=== PATIENT | male | born 1990 ===

== ENCOUNTER 2017-01-12 12:35 | Observation (INO) | payer SELFPAY ==
[2017-01-12 12:35] VITALS: BMI 27.1
--- NOTE | 2017-01-12 12:46 | ED PDOC ---
Arrival/HPI - General Historian: Patient - History of Present Illness Time/Duration: 4-6 hours Symptom Onset: Gradual Symptom Course: Unchanged Activities at Onset: Light Context: Home <Walter Sheets - Last Filed: 01/12/17 17:38> <Ariel Galvan - Last Filed: 01/12/17 19:20> - General Time Seen by Provider: 01/12/17 12:37 - History of Present Illness Narrative History of Present Illness (Text): 01/12/17 12:42 Tayo Ann is a 26 year old male, whose past medical history includes alcohol abuse, who presents to the emergency department coming from home reporting of overdose as per EMS today. Patient was found with snoring respirations. EMS reports that Narcan was given. As per EMS, patient took heroin but patient denies any use. Patient endorses that he has been drinking. Patient denies any fever, chills, chest pain, shortness of breath, nausea, vomiting, diarrhea, urinary symptoms, back pain, neck pain, headache, dizziness , or any other complaints. (Walter Sheets) Past Medical History - Provider Review Nursing Documentation Reviewed: Yes - Past History Past History: No Previous - Infectious Disease Hx of Infectious Diseases: None - Tetanus Immunization Tetanus Immunization: Up to Date, Unknown - Past Medical History Past Medical History: No Previous - Cardiac Hx Hypertension: Yes - Pulmonary Hx Respiratory Disorders: No - Neurological Hx Neurological Disorder: No - HEENT Hx HEENT Disorder: No - Renal Hx Renal Disorder: No - Endocrine/Metabolic Hx Endocrine Disorders: No - Hematological/Oncological Hx Blood Disorders: No - Integumentary Hx Dermatological Disorder: No - Musculoskeletal/Rheumatological Hx Musculoskeletal Disorders: No - Gastrointestinal Other/Comment: "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 (Dr Ross) - Genitourinary/Gynecological Hx Genitourinary Disorders: No - Psychiatric Hx Anxiety: Yes Hx Depression: Yes Hx Substance Use: No - Past Surgical History Past Surgical History: No Previous - Surgical History Hx Orthopedic Surgery: Yes (left ankle surgery) Other/Comment: abd surgery secondary to trauma - Anesthesia Hx Anesthesia: Yes Hx Anesthesia Reactions: No Hx Malignant Hyperthermia: No - Suicidal Assessment Feels Threatened In Home Enviroment: No <Walter Sheets - Last Filed: 01/12/17 17:38> Family/Social History - Physician Review Nursing Documentation Reviewed: Yes Family/Social History: No Known Family HX Smoking Status: Unknown If Ever Smoked Hx Alcohol Use: Yes Hx Substance Use: No Substance used: marijuana Hx Substance Use Treatment: No <Walter Sheets - Last Filed: 01/12/17 17:38> Allergies/Home Meds <Walter Sheets - Last Filed: 01/12/17 17:38> <Ariel Galvan - Last Filed: 01/12/17 19:20> Allergies/Adverse Reactions: Allergies shellfish derived Allergy (Verified 04/08/16 01:28) ANAPHYLAXIS Home Medications: Home Meds Medication Instructions Recorded Confirmed Unobtainable 01/12/17 01/12/17 Review of Systems - Physician Review All systems were reviewed & negative as marked: Yes - Review of Systems Constitutional: Other (Overdose) Eyes: absent: Vision Changes, Photophobia ENT: absent: Hearing Changes Respiratory: absent: SOB, Cough Cardiovascular: absent: Chest Pain Gastrointestinal: absent: Abdominal Pain Genitourinary Male: absent: Dysuria, Frequency Musculoskeletal: absent: Arthralgias Skin: absent: Rash, Pruritis Neurological: absent: Headache, Dizziness Endocrine: absent: Diaphoresis Hemo/Lymphatic: absent: Adenopathy <Walter Sheets - Last Filed: 01/12/17 17:38> Physical Exam Appearance: Positive for: Other (odor of alcohol) - Systems Exam Head: Present: Atraumatic, Normocephalic Pupils: Present: PERRL Extroacular Muscles: Present: EOMI Conjunctiva: Present: Normal Mouth: Present: Moist Mucous Membranes Neck: Present: Normal Range of Motion Respiratory/Chest: Present: Clear to Auscultation, Good Air Exchange. No: Respiratory Distress, Accessory Muscle Use Cardiovascular: Present: Regular Rate and Rhythm, Normal S1, S2. No: Murmurs Abdomen: Present: Normal Bowel Sounds. No: Tenderness, Distention, Peritoneal Signs Back: Present: Normal Inspection Upper Extremity: Present: Normal Inspection. No: Cyanosis, Edema Lower Extremity: Present: Normal Inspection. No: Edema Neurological: Present: GCS=15, CN II-XII Intact, Speech Normal Skin: Present: Warm, Dry, Normal Color. No: Rashes Psychiatric: Present: Alert, Oriented x 3, Normal Insight, Normal Concentration <Walter Sheets - Last Filed: 01/12/17 17:38> Medical Decision Making - Lab Interpretations I have reviewed the lab results: Yes <Walter Sheets - Last Filed: 01/12/17 17:38> <Ariel Galvan - Last Filed: 01/12/17 19:20> ED Course and Treatment: 01/12/17 12:46 Impression: 26 year old male complaining of overdose today as per EMS. Differential Diagnosis included but are not limited to: Overdose Plan: -- EKG -- Chest X-ray -- Urinalysis -- Labs -- Reassess and disposition Prior Visits: Notes and results from previous visits were reviewed. Patient last seen in the ED on 07/13/16 for public intoxication. Patient was discharged home. Progress Notes: EKG: Ordered, reviewed, and independently interpreted the EKG. Rate : 113 BPM Rhythm : Sinus Tachycardia Interpretation : No ST-segment elevations or depressions, no T-wave inversions, normal intervals. Comparison : No previous EKG for comparison. (Walter Sheets) 191 pt is now a&ox3, ambulatory with steady gait, clinically not intoxicated, requesting to leave. no indication to hold the pt involuntarily. (Ariel Galvan) - Lab Interpretations Lab Results: 01/12/17 12:48 01/12/17 12:48 Lab Results 01/12/17 12:52: POC Glucose (mg/dL) 91 01/12/17 12:48: Alcohol, Quantitative 293 H 01/12/17 12:48: Salicylates < 1 L, Acetaminophen < 10.0 L 01/12/17 12:48: Sodium 150 H, Potassium 3.7, Chloride 110 H, Carbon Dioxide 21, Anion Gap 23 H, BUN 11, Creatinine 1.2, Est GFR ( Amer) > 60, Est GFR ( Non-Af Amer) > 60, Random Glucose 138 H, Calcium 8.9, Total Bilirubin 0.5, AST 175 H, ALT 206 H, Alkaline Phosphatase 88, Total Protein 8.3, Albumin 4.8, Globulin 3.5, Albumin/Globulin Ratio 1.4 01/12/17 12:48: WBC 6.6 D, RBC 4.59, Hgb 15.1, Hct 44.6, MCV 97.2, MCH 32.9, MCHC 33.9, RDW 12.7, Plt Count 269, MPV 9.3, Gran % 44.0 L, Lymph % (Auto) 48.0 H, Drew % (Auto) 7.4 H, Eos % (Auto) 0.3 L, Baso % (Auto) 0.3, Gran # 2.91, Lymph # 3.2, Drew # 0.5, Eos # 0.0, Baso # 0.02 - RAD Interpretation Radiology Orders: 01/12/17 12:38 CHEST PORTABLE [RAD] Stat - Medication Orders Current Medication Orders: Discontinued Medications Sodium Chloride (Sodium Chloride 0.9%) 1,000 mls @ 999 mls/hr IV .Q1H1M STA Stop: 01/12/17 15:10 Last Admin: 01/12/17 14:25 Dose: 999 mls/hr ED OBSERVATION Discharge: Yes Date of observation admission: 01/12/17 Time of observation admission: 12:42 <Walter Sheets - Last Filed: 01/12/17 17:38> Discharge: Yes <Ariel Galvan - Last Filed: 01/12/17 19:20> - Observation admission statement Patient is being placed in observation because:: 26 year old male being placed on EDOBS for overdose. As per EMS, patient took heroin but patient denies any use. Patient endorses that he has been drinking. ( Walter Sheets) - Goals of Observation Goals of observation are:: Waiting for sobriety (Walter Sheets) - Progress Note Progress Note: 01/12/17 17:40 Patient is currently sleeping and no complaints have been made. (Walter Sheets) - Scribe Statement The provider has reviewed the documentation as recorded by the Scribe <Walter Sheets - Last Filed: 01/12/17 17:38> <Ariel Galvan - Last Filed: 01/12/17 19:20> - Scribe Statement Marsha Austin Provider Scribe Attestation: All medical record entries made by the Scribe were at my direction and personally dictated by me. I have reviewed the chart and agree that the record accurately reflects my personal performance of the history, physical exam, medical decision making, and the department course for this patient. I have also personally directed, reviewed, and agree with the discharge instructions and disposition. (Walter Sheets) Disposition/Present on Arrival - Present on Arrival History of DVT/PE: No History of Uncontrolled Diabetes: No Urinary Catheter: No History Surgical Site Infection Following: None <Walter Sheets - Last Filed: 01/12/17 17:38> - Present on Arrival Any Indicators Present on Arrival: No - Disposition Have Diagnosis and Disposition been Completed?: Yes Disposition Time: 19:17 <Ariel Galvan - Last Filed: 01/12/17 19:20> - Disposition Diagnosis: Alcohol abuse, Drug abuse Disposition: HOME/ ROUTINE Patient Problems: Current Active Problems Problem Status Onset Alcohol abuse Acute Drug abuse Acute Condition: STABLE
[2017-01-12 13:20] VITALS: TEMP 98.1
[2017-01-12 13:22] LABS: BASO # 0.02 K/mm3 (0.0-2.0); BASO % 0.3 % (0.0-3.0); EOS % 0.3 % (1.5-5.0); GRAN # 2.91 (1.4-6.5); HEMATOCRIT 44.6 % (42.0-52.0); LYMPH # 3.2 (1.2-3.4); MEAN CELL VOLUME 97.2 fl (80.0-105.0); MEAN CORPUSCULAR HEMOGLOBIN 32.9 pg (25.0-35.0); MEAN CORPUSCULAR HGB CONC 33.9 g/dl (31.0-37.0); MEAN PLATELET VOLUME 9.3 fl (7.0-11.0); MONO # 0.5 (0.1-0.6); MONO % 7.4 % (1.0-6.0); RED CELL DISTRIBUTION WIDTH 12.7 % (11.5-14.5); WHITE BLOOD COUNT 6.6 10^3/ul (4.5-11.0)
[2017-01-12 13:36] LABS: ALB/GLOB RATIO 1.4 (1.1-1.8); ALKALINE PHOSPHATASE 88 U/L (38-133); ALT/SGPT 206 U/L (7-56); AST/SGOT 175 U/L (15-59); BILIRUBIN,TOTAL 0.5 mg/dL (0.2-1.3); BLOOD UREA NITROGEN 11 mg/dL (7-21); CALCIUM 8.9 mg/dL (8.4-10.5); CARBON DIOXIDE 21 mmol/L (21-33); CHLORIDE 110 mmol/L (98-107); GFR AFRICAN-AMERICAN > 60; GLUCOSE,RANDOM 138 mg/dL (70-110); POTASSIUM 3.7 mmol/L (3.6-5.0); SODIUM 150 mmol/L (132-148); TOTAL PROTEIN 8.3 g/dL (5.8-8.3)
--- NOTE | 2017-01-12 13:44 | RAD ---
HISTORY: overdose COMPARISON: 11/24/2014 FINDINGS: LUNGS: No active pulmonary disease. PLEURA: No significant pleural effusion identified, no pneumothorax apparent. CARDIOVASCULAR: Normal. OSSEOUS STRUCTURES: No significant abnormalities. VISUALIZED UPPER ABDOMEN: Normal. OTHER FINDINGS: None. IMPRESSION: No active disease.
[2017-01-12] MEDS ORDERED: Sodium Chloride 0.9% 1,000 ML IV STA (14:10)
--- NOTE | 2017-01-12 15:19 | CARD ---
APPROVED REPORT EKG Measurement Heart [id number] [id number] <Conclusion> Sinus tachycardia Nonspecific T wave abnormality Abnormal ECG
[2017-01-12 18:14] VITALS: BP 137/57; PULSE 91; RESP 19; O2SAT 97
[2017-01-12 18:19] LABS: URINE BILIRUBIN NEGATIVE (NEGATIVE); URINE BLOOD NEGATIVE (NEGATIVE); URINE GLUCOSE (UA) NEGATIVE (NEGATIVE); URINE KETONE NEGATIVE (NEGATIVE); URINE LEUKOCYTE ESTERASE NEGATIVE Leu/uL (NEGATIVE); URINE PROTEIN 30 mg/dL (<30 mg/dL); URINE UROBILINOGEN 0.2 E.U./dL (<1 E.U./dL)
[2017-01-12 18:20] LABS: URINE APPEARANCE CLEAR (CLEAR); URINE COLOR YELLOW (YELLOW)
[2017-01-12 18:21] LABS: URINE RBC NEGATIVE /hpf (0-2)
== END 2017-01-12 19:20 | disposition home or self-care (01) ==
LOC: ED 12:35 → EROBSV 17:37
PROVIDERS: ADMIT Student in an Organized Health Care Education/Training Program; ATTEND Student in an Organized Health Care Education/Training Program
DX: F10.10 Alcohol abuse, uncomplicated (principal); F19.129 Other psychoactive substance abuse with intoxication, unspecified; Y90.8 Blood alcohol level of 240 mg/100 ml or more
CPT/HCPCS: 71010; 80053; 81001; 82948; 85025; 93005; 96360; 99285; G0378; G0480; J7040

== ENCOUNTER 2017-08-07 08:31 | Emergency (ER) | payer MEDICAID ==
[2017-08-07 08:44] VITALS: RESP 18; TEMP 97.9; BMI 29.8
[2017-08-07] MEDS ORDERED: Sodium Chloride 0.9% 1,000 ML IV STA (09:28)
--- NOTE | 2017-08-07 09:34 | ED PDOC ---
Arrival/HPI - General Chief Complaint: Male Genitourinary Historian: Patient - History of Present Illness Narrative History of Present Illness (Text): 08/07/17 09:30 26M hx of ETOH abuse, early signs of fatty liver disease presents to [facility] ED w/ sharp mid-epigastric pain that started this morning after binge drinking Vodka > 2 pints last night. Patient states he would like to have lab work done to see if his liver is ok. Denies trouble w/ urination, changes in BM, fevers, chills, nausea, vomiting. Currently does not have a PMD. Time/Duration: 4-6 hours Symptom Onset: Sudden Symptom Course: Resolved Past Medical History - Provider Review Nursing Documentation Reviewed: Yes - Travel History Have you recently traveled outside [place] w/in the past 3 mons?: No - Past History Past History: No Previous - Infectious Disease Hx of Infectious Diseases: None - Tetanus Immunization Tetanus Immunization: Up to Date, Unknown - Past Medical History Past Medical History: No Previous - Cardiac Hx Cardiac Disorders: Yes Hx Hypertension: Yes - Pulmonary Hx Respiratory Disorders: No - Neurological Hx Neurological Disorder: No - HEENT Hx HEENT Disorder: No - Renal Hx Renal Disorder: No - Endocrine/Metabolic Hx Endocrine Disorders: No - Hematological/Oncological Hx Blood Disorders: No - Integumentary Hx Dermatological Disorder: No - Musculoskeletal/Rheumatological Hx Musculoskeletal Disorders: No - Gastrointestinal Hx Gastrointestinal Disorders: Yes Other/Comment: "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 (Dr Ross) - Genitourinary/Gynecological Hx Genitourinary Disorders: No - Psychiatric Hx Psychophysiologic Disorder: Yes Hx Anxiety: Yes Hx Depression: Yes Hx Substance Use: No - Past Surgical History Past Surgical History: No Previous - Surgical History Hx Orthopedic Surgery: Yes (left ankle surgery) Other/Comment: abd surgery secondary to trauma - Anesthesia Hx Anesthesia: Yes Hx Anesthesia Reactions: No Hx Malignant Hyperthermia: No - Suicidal Assessment Feels Threatened In Home Enviroment: No Family/Social History - Physician Review Nursing Documentation Reviewed: Yes Family/Social History: Other (non-contributory) Smoking Status: Heavy Smoker > 10 Cigarettes Daily Hx Alcohol Use: Yes Frequency of alcohol use: Few days per week Hx Substance Use: No Substance used: marijuana Hx Substance Use Treatment: No Allergies/Home Meds Allergies/Adverse Reactions: Allergies shellfish derived Allergy (Verified 08/07/17 08:43) ANAPHYLAXIS Home Medications: Home Meds Medication Instructions Recorded Confirmed No Known Home Med 08/07/17 08/07/17 Review of Systems - Review of Systems Constitutional: absent: Weight Change, Fevers, Night Sweats Eyes: absent: Vision Changes, Photophobia ENT: absent: Hearing Changes, Tinnitus Respiratory: absent: SOB, Cough, Sputum Cardiovascular: absent: Chest Pain, Palpitations, Edema Gastrointestinal: absent: Abdominal Pain, Stool Changes, Constipation, Diarrhea , Nausea, Vomiting Musculoskeletal: absent: Arthralgias, Back Pain Skin: absent: Rash Neurological: absent: Headache Endocrine: absent: Diaphoresis Hemo/Lymphatic: absent: Adenopathy Physical Exam Vital Signs Temp Pulse Resp BP Pulse Ox 08/07/17 11:46 86 18 145/88 98 08/07/17 09:18 98 H 18 155/87 H 99 08/07/17 08:43 97.9 F 102 H 18 156/100 H 99 Temperature: Afebrile Blood Pressure: Normal Pulse: Regular Respiratory Rate: Normal Appearance: Positive for: Well-Appearing, Non-Toxic, Comfortable Pain Distress: None Mental Status: Positive for: Alert and Oriented X 3 - Systems Exam Head: Present: Atraumatic Pupils: Present: PERRL Extroacular Muscles: Present: EOMI Conjunctiva: Present: Normal Mouth: Present: Moist Mucous Membranes Neck: Present: Normal Range of Motion. No: JVD Respiratory/Chest: Present: Clear to Auscultation, Good Air Exchange. No: Respiratory Distress, Accessory Muscle Use Cardiovascular: Present: Regular Rate and Rhythm, Normal S1, S2. No: Murmurs Abdomen: Present: Scars (Midline incision well healed). No: Tenderness, Distention, Peritoneal Signs Upper Extremity: Present: Other (Right MCP bruised and multiple abrasians). No : Cyanosis, Edema Neurological: Present: GCS=15, Speech Normal Skin: Present: Warm, Normal Color Psychiatric: Present: Alert, Oriented x 3 Medical Decision Making ED Course and Treatment: 08/07/17 09:36 CBC/CMP/Lipase/Coags IVF/Pepcid patient refused digital rectal exams Requesting blood work to be done Discussed in detail w/ patient about vital signs and pain. Re-evaluation Time: 11:52 (Mid-epigastric pain has resolved. Has appetite and would like to eat) - Lab Interpretations Narrative Lab Interpretation (Text): 08/07/17 11:53 No signs of active infection. WBC WNL. AST/ALT elevated at 129/145 Lab Results: 08/07/17 09:47 08/07/17 09:47 Lab Results 08/07/17 09:47: Sodium 148, Potassium 3.8, Chloride 106, Carbon Dioxide 28, Anion Gap 18, BUN 9, Creatinine 1.0, Est GFR ( Amer) > 60, Est GFR (Non- Af Amer) > 60, Random Glucose 96, Calcium 10.1, Total Bilirubin 0.2, AST 129 H, ALT 145 H, Alkaline Phosphatase 86, Total Protein 9.0 H, Albumin 4.7, Globulin 4.3, Albumin/Globulin Ratio 1.1, Lipase 116 08/07/17 09:47: PT 11.4, INR 0.99, APTT 30.4 08/07/17 09:47: WBC 6.8, RBC 4.75, Hgb 15.6, Hct 46.1, MCV 97.1, MCH 32.8, MCHC 33.8, RDW 13.7, Plt Count 242, MPV 9.0, Gran % 51.9, Lymph % (Auto) 33.9, Kings % (Auto) 13.1 H, Eos % (Auto) 0.7 L, Baso % (Auto) 0.4, Gran # 3.52, Lymph # ( Auto) 2.3, Kings # (Auto) 0.9 H, Eos # (Auto) 0.1, Baso # (Auto) 0.03 I have reviewed the lab results: Yes Interpretation: No clinic. lab abnormalty - Medication Orders Current Medication Orders: Discontinued Medications Famotidine (Pepcid) 20 mg IVP STAT STA Stop: 08/07/17 09:29 Last Admin: 08/07/17 09:54 Dose: 20 mg IVP Administration Document 08/07/17 09:54 AILYN (Rec: 08/07/17 09:54 AILYN [id number]) Charges for Administration # of IVP Administrations 1 Sodium Chloride (Sodium Chloride 0.9%) 1,000 mls @ 999 mls/hr IV .Q1H1M STA Stop: 08/07/17 10:28 Last Admin: 08/07/17 09:53 Dose: 999 mls/hr eMAR Start Stop Document 08/07/17 09:53 AILYN (Rec: 08/07/17 09:54 AILYN [id number]) Intravenous Solution Start Date 08/07/17 Start Time 09:53 End Date 08/07/17 End time 10:53 Total Infusion Time 60 - PA / SOFTWARE DEVELOPMENT ADVISOR / Resident Statement MD/DO has reviewed & agrees with the documentation as recorded. MD/DO has examined the patient and agrees with the treatment plan. Disposition/Present on Arrival - Present on Arrival Any Indicators Present on Arrival: No History of DVT/PE: No History of Uncontrolled Diabetes: No Urinary Catheter: No History of Decub. Ulcer: No History Surgical Site Infection Following: None - Disposition Have Diagnosis and Disposition been Completed?: Yes Diagnosis: EtOH dependence Disposition: HOME/ ROUTINE Disposition Time: 11:54 Patient Plan: Discharge Condition: GOOD Discharge Instructions (ExitCare): Alcohol Abuse and Alcoholism (DC) Additional Instructions: Thank you for letting us take care of you today. The emergency medical care you received today was directed at your acute symptoms. If you were prescribed any medication, please fill it and take as directed. It may take several days for your symptoms to resolve. Return to the Emergency Department if your symptoms worsen, do not improve, or if you have any other problems. Please contact your doctor or call one of the physicians/clinics you have been referred to that are listed on the Patient Visit Information form that is included in your discharge packet. Bring any paperwork you were given at discharge with you along with any medications you are taking to your follow up visit. Our treatment cannot replace ongoing medical care by a primary care provider (PCP) outside of the emergency department. Thank you for allowing the [facility] team to be part of your care today. Referrals: [facility] Samir Req, [Primary Care Provider] - Follow up with primary Forms: [employer] (Turkmen), WORK NOTE
[2017-08-07 09:58] LABS: BASO # 0.03 K/mm3 (0.0-2.0); BASO % 0.4 % (0.0-3.0); EOS # 0.1 (0.0-0.7); EOS % 0.7 % (1.5-5.0); GRAN # 3.52 (1.4-6.5); GRAN % 51.9 % (50.0-68.0); HEMOGLOBIN 15.6 g/dL (14.0-18.0); LYMPH # 2.3 (1.2-3.4); LYMPH % 33.9 % (22.0-35.0); MEAN CELL VOLUME 97.1 fl (80.0-105.0); MEAN CORPUSCULAR HEMOGLOBIN 32.8 pg (25.0-35.0); MEAN CORPUSCULAR HGB CONC 33.8 g/dl (31.0-37.0); MONO # 0.9 (0.1-0.6); MONO % 13.1 % (1.0-6.0); RBC 4.75 10^6/uL (3.5-6.1); RED CELL DISTRIBUTION WIDTH 13.7 % (11.5-14.5); WHITE BLOOD COUNT 6.8 10^3/ul (4.5-11.0)
[2017-08-07 10:05] LABS: ALB/GLOB RATIO 1.1 (1.1-1.8); ALBUMIN 4.7 g/dL (3.0-4.8); ALT/SGPT 145 U/L (7-56); AST/SGOT 129 U/L (17-59); BLOOD UREA NITROGEN 9 mg/dL (7-21); CALCIUM 10.1 mg/dL (8.4-10.5); GFR AFRICAN-AMERICAN > 60; GFR NON-AFRICAN AMERICAN > 60; LIPASE 116 U/L (23-300)
[2017-08-07 10:10] LABS: INR 0.99 (0.93-1.08); PARTIAL THROMBOPLASTIN TIME 30.4 Seconds (25.1-36.5); PROTHROMBIN TIME 11.4 SECONDS (9.4-12.5)
[2017-08-07 11:46] VITALS: BP 145/88; PULSE 86; O2SAT 98
== END 2017-08-07 12:19 | disposition home or self-care (01) ==
LOC: ED 08:31
DX: F10.20 Alcohol dependence, uncomplicated (principal); Y90.9 Presence of alcohol in blood, level not specified; I10 Essential (primary) hypertension; F17.210 Nicotine dependence, cigarettes, uncomplicated
CPT/HCPCS: 80053; 83690; 85025; 85610; 85730; 96361; 96374; 99285; J7040

== ENCOUNTER 2017-09-09 09:59 | Emergency (ER) | payer MEDICAID ==
[2017-09-09 10:00] VITALS: BMI 29.8
[2017-09-09] MEDS ORDERED: TDAP Vaccine 0.5 mL Syr IM ONE (10:17)
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
[2017-09-09 11:00] VITALS: TEMP 98.1; O2SAT 98
[2017-09-09 11:18] VITALS: RESP 18
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
[2017-09-09 13:27] VITALS: BP 116/69; PULSE 96
== END 2017-09-09 14:14 | disposition home or self-care (01) ==
LOC: ED 09:59
DX: S01.91XA Laceration without foreign body of unspecified part of head, initial encounter (principal); Y08.02XA Assault by strike by baseball bat, initial encounter; Z23 Encounter for immunization; F17.210 Nicotine dependence, cigarettes, uncomplicated; I10 Essential (primary) hypertension

== ENCOUNTER 2017-09-10 05:29 | Emergency (ER) | payer MEDICAID ==
[2017-09-10 05:38] VITALS: BMI 34.4
[2017-09-10 05:45] VITALS: TEMP 98.6
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
[2017-09-10 08:15] VITALS: BP 132/84; PULSE 80; RESP 18; O2SAT 96
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
== END 2017-09-10 08:19 | disposition home or self-care (01) ==
LOC: ED 05:29
DX: S09.90XA Unspecified injury of head, initial encounter (principal); S29.9XXA Unspecified injury of thorax, initial encounter; Y08.02XA Assault by strike by baseball bat, initial encounter; F17.210 Nicotine dependence, cigarettes, uncomplicated; I10 Essential (primary) hypertension

== ENCOUNTER 2017-09-13 03:01 | Emergency (ER) | payer MEDICAID ==
[2017-09-13 03:01] VITALS: BMI 34.4
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
== END 2017-09-13 05:20 | disposition home or self-care (01) ==
LOC: ED 03:01
DX: S09.90XA Unspecified injury of head, initial encounter (principal); Y08.02XA Assault by strike by baseball bat, initial encounter; I10 Essential (primary) hypertension; F17.210 Nicotine dependence, cigarettes, uncomplicated

== ENCOUNTER 2017-09-16 12:54 | Emergency (ER) | payer MEDICAID ==
[2017-09-16 12:56] VITALS: BMI 29.8
[2017-09-16 12:59] VITALS: BP 140/86; PULSE 92; RESP 16; TEMP 98.8; O2SAT 96
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
== END 2017-09-16 14:00 | disposition home or self-care (01) ==
LOC: ED 12:54
DX: Z48.02 Encounter for removal of sutures (principal); R51 Headache; J30.2 Other seasonal allergic rhinitis; I10 Essential (primary) hypertension; F17.210 Nicotine dependence, cigarettes, uncomplicated

== ENCOUNTER 2018-02-10 12:29 | Emergency (ER) | payer MEDICAID ==
[2018-02-10 12:30] VITALS: BMI 29.8
[2018-02-10 12:51] VITALS: RESP 18
--- NOTE | 2018-02-10 13:10 | ED PDOC ---
Arrival/HPI - General Historian: Patient - History of Present Illness Narrative History of Present Illness (Text): 02/10/18 13:06 27 year old male, past medical history significant for drug and alcohol abuse, presents to the emergency room after sustaining a fall from a 2nd story [email or web address]. 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 He leaned over the [email or web address] to toss something when the bannister broke and he fell over concrete. He landed on his hands and knees. He states he saw a flash of light, but did not lose consciousness. Unaware if he hit his head however does have abrasions over right cheek. Admits to pain in his right arm, left knee. Denies difficulty with ambul ation. Denies headache, dizziness, fever, chills, nausea, vomiting, shortness of breath, cough, hearing or vision changes, chest pain, palpitations, or urinary symptoms. Tetanus up to date Time/Duration: Prior to Arrival Symptom Onset: Sudden Symptom Course: Unchanged Quality: Aching Severity Level: Moderate Context: Work <Italo Vincent - Last Filed: 02/10/18 15:46> <Torrey Caruso DO - Last Filed: 02/10/18 19:19> - General Chief Complaint: Trauma Time Seen by Provider: 02/10/18 12:42 Past Medical History - Provider Review Nursing Documentation Reviewed: Yes - Past History Past History: No Previous - Infectious Disease Hx of Infectious Diseases: None - Tetanus Immunization Tetanus Immunization: Up to Date - Past Medical History Past Medical History: No Previous - Cardiac Hx Cardiac Disorders: Yes Hx Hypertension: Yes - Pulmonary Hx Respiratory Disorders: No - Neurological Hx Neurological Disorder: No - HEENT Hx HEENT Disorder: No - Renal Hx Renal Disorder: No - Endocrine/Metabolic Hx Endocrine Disorders: No - Hematological/Oncological Hx Blood Disorders: No - Integumentary Hx Dermatological Disorder: No - Musculoskeletal/Rheumatological Hx Musculoskeletal Disorders: No - Gastrointestinal Hx Gastrointestinal Disorders: Yes Other/Comment: "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 (Dr Ross) - Genitourinary/Gynecological Hx Genitourinary Disorders: No - Psychiatric Hx Psychophysiologic Disorder: Yes Hx Anxiety: Yes Hx Depression: Yes Hx Substance Use: No - Past Surgical History Past Surgical History: No Previous - Surgical History Hx Orthopedic Surgery: Yes (left ankle surgery) Other/Comment: abd surgery secondary to trauma - Anesthesia Hx Anesthesia: Yes Hx Anesthesia Reactions: No Hx Malignant Hyperthermia: No - Suicidal Assessment Feels Threatened In Home Enviroment: No <Italo Vincent - Last Filed: 02/10/18 15:46> Family/Social History - Physician Review Nursing Documentation Reviewed: Yes Family/Social History: No Known Family HX Smoking Status: Heavy Smoker > 10 Cigarettes Daily Hx Alcohol Use: Yes Hx Substance Use: No Substance used: marijuana Hx Substance Use Treatment: No <Italo Vincent - Last Filed: 02/10/18 15:46> Allergies/Home Meds <Italo Vincent - Last Filed: 02/10/18 15:46> <Torrey Caruso DO - Last Filed: 02/10/18 19:19> Allergies/Adverse Reactions: Allergies shellfish derived Allergy (Verified 02/10/18 12:51) ANAPHYLAXIS Review of Systems - Physician Review All systems were reviewed & negative as marked: Yes - Review of Systems Constitutional: absent: Fevers Eyes: absent: Vision Changes ENT: absent: Hearing Changes Respiratory: absent: SOB, Cough Cardiovascular: absent: Chest Pain, Palpitations Gastrointestinal: absent: Abdominal Pain, Nausea, Vomiting Genitourinary Male: absent: Dysuria, Hematuria Musculoskeletal: absent: Arthralgias Skin: Skin Lesions. absent: Rash Neurological: absent: Headache, Dizziness, Gait Changes Endocrine: absent: Diaphoresis <Italo Vincent - Last Filed: 02/10/18 15:46> Physical Exam Vital Signs Reviewed: Yes Vital Signs Temp Pulse Resp BP Pulse Ox 02/10/18 12:48 98.4 F 82 18 141/82 97 Temperature: Afebrile Blood Pressure: Normal Pulse: Regular Respiratory Rate: Normal Appearance: Positive for: Well-Appearing, Non-Toxic, Comfortable Pain Distress: None Mental Status: Positive for: Alert and Oriented X 3 - Systems Exam Head: Present: Atraumatic, Normocephalic, Abrasion Pupils: Present: PERRL Extroacular Muscles: Present: EOMI Mouth: Present: Moist Mucous Membranes Neck: Present: Normal Range of Motion Respiratory/Chest: Present: Clear to Auscultation, Good Air Exchange. No: Re spiratory Distress, Accessory Muscle Use Cardiovascular: Present: Regular Rate and Rhythm, Normal S1, S2. No: Murmurs Abdomen: No: Tenderness, Distention, Peritoneal Signs Upper Extremity: Present: NORMAL PULSES, Tenderness, Other (right wrist decreased ROM, sensation intact) Lower Extremity: Present: Normal Inspection, NORMAL PULSES. No: Edema, CALF TENDERNESS, Tenderness, Deformity Neurological: Present: GCS=15, CN II-XII Intact, Speech Normal, Motor Func Grossly Intact, Normal Sensory Function, Gait Normal, Memory Normal, Normal 2Pt Descrimination Skin: Present: Warm, Dry, Normal Color, Abrasion (on right cheek). No: Rashes Psychiatric: Present: Alert, Oriented x 3, Normal Insight, Normal Concentration <Italo Vincent - Last Filed: 02/10/18 15:46> Vital Signs Temp Pulse Resp BP Pulse Ox 02/10/18 15:34 98.5 F 74 18 119/88 99 02/10/18 13:54 81 18 111/76 98 02/10/18 12:48 98.4 F 82 18 141/82 97 <Torrey Caruso DO - Last Filed: 02/10/18 19:19> Medical Decision Making ED Course and Treatment: 02/10/18 13:49 27M, PMH of drug/alcohol abuse, presents to ED after sustaining a fall Wrist x-ray Left knee x-ray CT orbit CT head Tylenol 02/10/18 13:50 CT head - no acute intracranial abnormalities CT orbit - no acute abnormalities 02/10/18 15:23 Knee xray negative for fracture Wrist x-ray shows fracture at the right 5th metacarpal, old ulnar fracture read by me. Also same read by radiologist. Patient to follow up with ortho Dr Jensen within the next 3-5 days for further management. Arm splinted in the ED Patient verbalized understanding and agreement of treatment plan Case reviewed and discussed with attending provider 02/10/18 15:47 - RAD Interpretation Radiology Orders: 02/10/18 13:01 HEAD W/O CONTRAST [CT] Stat ORBITS/ FACIALS W/O CONTRAST [CT] Stat WRIST, LEFT 3 VIEWS [RAD] Stat WRIST, RIGHT 3 VIEWS [RAD] Stat 02/10/18 13:02 KNEE WITH PATELLA LEFT 3 VIEW [RAD] Stat - Medication Orders Current Medication Orders: Acetaminophen (Tylenol 325mg Tab) 975 mg PO STAT STA Stop: 02/10/18 13:03 <Italo Vincent - Last Filed: 02/10/18 15:46> - RAD Interpretation Radiology Orders: 02/10/18 13:01 HEAD W/O CONTRAST [CT] Stat ORBITS/ FACIALS W/O CONTRAST [CT] Stat WRIST 3 VIEWS BI [RAD] Stat 02/10/18 13:02 KNEE WITH PATELLA LEFT 3 VIEW [RAD] Stat - Medication Orders Current Medication Orders: Discontinued Medications Acetaminophen (Tylenol 325mg Tab) 975 mg PO STAT STA Stop: 02/10/18 13:03 Last Admin: 02/10/18 13:30 Dose: 975 mg MAR Pain/Vitals Document 02/10/18 13:30 HI (Rec: 02/10/18 14:04 HI [id number]) Pain Reassessment Is This A Pain ReAssessment? No Sleep Is patient sleeping during reassessment? No Presence of Pain Presence of Pain Yes Pain Scale Used Protocol: PSCALES Pain Scale Used Numeric Location Left, Right or Bilateral Right Pain Location Body Site Arm <Torrey Caruso DO - Last Filed: 02/10/18 19:19> - PA / SOFTWARE VALIDATION ENGINEER / Resident Statement HIRA has reviewed & agrees with the documentation as recorded. / has examined the patient and agrees with the treatment plan. - Scribe Statement The provider has reviewed the documentation as recorded by the Scribe 27 year old male who presents for evaluation status post fall. In agreement with resident note, which includes further HPI details. Patient was seen and evaluated with resident, came up with plan and treatment together. <Torrey Caruso DO - Last Filed: 02/10/18 19:19> Disposition/Present on Arrival - Present on Arrival Any Indicators Present on Arrival: No History of DVT/PE: No History of Uncontrolled Diabetes: No Urinary Catheter: No History of Decub. Ulcer: No History Surgical Site Infection Following: None - Disposition Have Diagnosis and Disposition been Completed?: Yes Disposition Time: 15:47 Patient Plan: Discharge <Italo Vincent - Last Filed: 02/10/18 15:46> - Disposition Disposition Time: 14:45 <Torrey Caruso DO - Last Filed: 02/10/18 19:19> - Disposition Diagnosis: Metacarpal bone fracture Disposition: HOME/ ROUTINE Condition: GOOD Discharge Instructions (ExitCare): Cast Care, Hand Fracture (DC) Additional Instructions: RACHNA RIVAS, thank you for letting us take care of you today. The emergency medical care you received today was directed at your acute symptoms. If you were prescribed any medication, please fill it and take as directed. It may take several days for your symptoms to resolve. Return to the Emergency Department if your symptoms worsen, do not improve, or if you have any other problems. Please contact your doctor or call one of the physicians/clinics you have been referred to that are listed on the Patient Visit Information form that is included in your discharge packet. Bring any paperwork you were given at discharge with you along with any medications you are taking to your follow up visit. Our treatment cannot replace ongoing medical care by a primary care provider outside of the emergency department. Thank you for allowing the [facility] team to be part of your care today. Keep splint clean and dry at all times. Follow up with Dr. Jensen in 2-3 days for re-evaluation and further management. Prescriptions: Ibuprofen [Motrin] 600 mg PO Q6 PRN #20 tab PRN Reason: Pain, Moderate (4-7) Referrals: Jamir Jensen III, MD [Medical Doctor] - Follow up with primary Forms: [employer] (Arabic), WORK NOTE
--- NOTE | 2018-02-10 13:43 | CT ---
Date of service: 02/10/2018 PROCEDURE: CT HEAD WITHOUT CONTRAST. HISTORY: r/o ICH and fx COMPARISON: 09/13/2017. TECHNIQUE: Axial computed tomography images were obtained through the head/brain without intravenous contrast. Supplemental Coronal and Sagittal projectections created and reviewed. Radiation dose: Total exam DLP = 939.73 mGy-cm. This CT exam was performed using one or more of the following dose reduction techniques: Automated exposure control, adjustment of the mA and/or kV according to patient size, and/or use of iterative reconstruction technique. FINDINGS: HEMORRHAGE: No intracranial hemorrhage. BRAIN: No mass effect or edema. No atrophy or chronic microvascular ischemic changes. VENTRICLES: Unremarkable. No hydrocephalus. CALVARIUM: Unremarkable. PARANASAL SINUSES: Unremarkable as visualized. No significant inflammatory changes. MASTOID AIR CELLS: Unremarkable as visualized. No inflammatory changes. OTHER FINDINGS: None. IMPRESSION: No acute intracranial abnormalities. No significant findings to account for the clinical presentation. No significant interval change compared to the prior examination(s).
--- NOTE | 2018-02-10 14:06 | CT ---
Date of service: 02/10/2018 PROCEDURE: CT MAXILLOFACIAL BONES WITHOUT CONTRAST HISTORY: r/o fx COMPARISON: None available. TECHNIQUE: Contiguous axial CT images of the maxillofacial bones were obtained. Coronal and sagittal reformats were generated. Radiation dose: Total exam DLP = 864.82 mGy-cm. This CT exam was performed using one or more of the following dose reduction techniques: Automated exposure control, adjustment of the mA and/or kV according to patient size, and/or use of iterative reconstruction technique. FINDINGS: NASAL BONES: Unremarkable. ORBITS: Unremarkable. PARANASAL SINUSES/ MASTOIDS: Clear. MAXILLA: Unremarkable. MANDIBLE/ TEMPOROMANDIBULAR JOINTS: Unremarkable. SKULL BASE: Unremarkable. TEMPORAL BONES: Middle ears and mastoid grossly unremarkable. OTHER FINDINGS: Right facial soft tissue swelling without underlying maxillary abnormality. IMPRESSION: Unremarkable non contrast enhanced CT of the maxillofacial bones. Right facial soft tissue swelling. No visulaized radiopaque/visualized foreign body.
--- NOTE | 2018-02-10 15:22 | RAD ---
Date of service: 02/10/2018 PROCEDURE: Left Knee Radiographs. HISTORY: Posttraumatic pain COMPARISON: None. FINDINGS: BONES: No acute fracture. Accessory ossicle or evidence of old tibial tuberosity injury. No pretibial soft tissue swelling. JOINTS: Normal. No osteoarthritis. JOINT EFFUSION: None. OTHER FINDINGS: None. IMPRESSION: No acute findings related to/accounting for the clinical presentation.
--- NOTE | 2018-02-10 15:27 | RAD ---
Date of service: 02/10/2018 PROCEDURE: Bilateral Wrists Radiographs. HISTORY: r/o fx COMPARISON: None. FINDINGS: BONES: Right Carpal Bones: Normal. No fracture or degenerative changes. Left Carpal Bones: Normal. No fracture or degenerative changes. Right Distal Radius and Ulna: Evidence of healed fracture distal right ulna. Proximal 5th metacarpal fracture. In the clinical setting of history this likely represents an acute fracture. Left Distal Radius and Ulna: No fracture or degenerative changes. JOINT SPACES: Right Wrist: Normal. No degenerative changes. Left Wrist: Normal. No degenerative changes. SOFT TISSUES: Right Wrist: Soft tissue swelling about the lateral aspect of the right hand. Left Wrist: Normal. OTHER FINDINGS: None. IMPRESSION: Healed fracture distal right ulna. Acute fracture proximal right 5th metacarpal. Soft tissue swelling identified at the site of the fracture
[2018-02-10 15:39] VITALS: BP 119/88; PULSE 74; TEMP 98.5; O2SAT 99
== END 2018-02-10 15:39 | disposition home or self-care (01) ==
LOC: ED 12:29
DX: S62.396A Other fracture of fifth metacarpal bone, right hand, initial encounter for closed fracture (principal); W13.0XXA Fall from, out of or through balcony, initial encounter; Y92.89 Other specified places as the place of occurrence of the external cause; Y99.0 Civilian activity done for income or pay

== ENCOUNTER 2018-10-12 03:11 | Emergency (ER) | payer SELFPAY ==
[2018-10-12 03:11] VITALS: BMI 29.8
[2018-10-12 03:31] VITALS: RESP 18; TEMP 98
--- NOTE | 2018-10-12 03:57 | ED PDOC ---
Arrival/HPI - General Chief Complaint: Alcohol Ingestion Time Seen by Provider: 10/12/18 03:23 Historian: Patient - History of Present Illness Narrative History of Present Illness (Text): 10/12/18 03:53 28 year old male, whose past medical history includes substance abuse, presents to the emergency department for alcohol intoxication. Patient informs he has also been having intermittent chest pain, for an unknown amount of time. Patient denies any fevers, chills, headache, dizziness, shortness of breath, dyspnea on exertion, cough, abdominal pain, nausea, vomiting, diarrhea, back pain, neck pain, or any other complaints. Time/Duration: Prior to Arrival Symptom Onset: Gradual Symptom Course: Unchanged Quality: Aching Activities at Onset: Light Context: Home Past Medical History - Provider Review Nursing Documentation Reviewed: Yes - Past History Past History: No Previous - Infectious Disease Hx of Infectious Diseases: None - Tetanus Immunization Tetanus Immunization: Up to Date - Past Medical History Past Medical History: No Previous - Cardiac Hx Cardiac Disorders: Yes Hx Hypertension: Yes - Pulmonary Hx Respiratory Disorders: No - Neurological Hx Neurological Disorder: No - HEENT Hx HEENT Disorder: No - Renal Hx Renal Disorder: No - Endocrine/Metabolic Hx Endocrine Disorders: No - Hematological/Oncological Hx Blood Disorders: No - Integumentary Hx Dermatological Disorder: No - Musculoskeletal/Rheumatological Hx Musculoskeletal Disorders: No - Gastrointestinal Hx Gastrointestinal Disorders: Yes Other/Comment: "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 (Dr Ross) - Genitourinary/Gynecological Hx Genitourinary Disorders: No - Psychiatric Hx Psychophysiologic Disorder: Yes Hx Anxiety: Yes Hx Depression: Yes Hx Substance Use: No - Past Surgical History Past Surgical History: No Previous - Surgical History Hx Orthopedic Surgery: Yes (left ankle surgery) Other/Comment: abd surgery secondary to trauma - Anesthesia Hx Anesthesia: Yes Hx Anesthesia Reactions: No Hx Malignant Hyperthermia: No - Suicidal Assessment Feels Threatened In Home Enviroment: No Family/Social History - Physician Review Nursing Documentation Reviewed: Yes Family/Social History: No Known Family HX Smoking Status: Heavy Smoker > 10 Cigarettes Daily Hx Alcohol Use: Yes Hx Substance Use: No Substance used: marijuana Hx Substance Use Treatment: No Allergies/Home Meds Allergies/Adverse Reactions: Allergies shellfish derived Allergy (Verified 10/12/18 03:26) ANAPHYLAXIS Home Medications: Home Meds Medication Instructions Recorded Confirmed No Known Home Med 10/12/18 10/12/18 Review of Systems - Review of Systems Constitutional: absent: Fevers, Night Sweats Respiratory: absent: SOB, Cough Cardiovascular: Chest Pain. absent: BLANCO Gastrointestinal: absent: Abdominal Pain, Diarrhea, Nausea, Vomiting Musculoskeletal: absent: Back Pain, Neck Pain Neurological: absent: Headache, Dizziness Physical Exam Vital Signs Reviewed: Yes Vital Signs Temp Pulse Pulse Resp BP BP Pulse Ox 10/12/18 03:34 101 H 149/103 H 10/12/18 03:21 98.0 F 104 H 18 149/103 H 97 Temperature: Afebrile Blood Pressure: Hypertensive Pulse: Tachycardic Respiratory Rate: Normal Appearance: Positive for: Well-Appearing, Non-Toxic, Comfortable Pain Distress: None Mental Status: Positive for: Alert and Oriented X 3 - Systems Exam Head: Present: Atraumatic, Normocephalic Pupils: Present: PERRL Extroacular Muscles: Present: EOMI Conjunctiva: Present: Normal Mouth: Present: Moist Mucous Membranes Neck: Present: Normal Range of Motion Respiratory/Chest: Present: Clear to Auscultation, Good Air Exchange. No: Respiratory Distress, Accessory Muscle Use Cardiovascular: Present: Regular Rate and Rhythm, Normal S1, S2. No: Murmurs Abdomen: No: Tenderness, Distention, Peritoneal Signs Back: Present: Normal Inspection Upper Extremity: Present: Normal Inspection. No: Cyanosis, Edema Lower Extremity: Present: Normal Inspection. No: Edema Neurological: Present: GCS=15, CN II-XII Intact, Speech Normal Skin: Present: Warm, Dry, Normal Color. No: Rashes Psychiatric: Present: Alert, Oriented x 3, Normal Insight, Normal Concentration Medical Decision Making ED Course and Treatment: 10/12/18 03:58 Impression: 28 year old male presents for alcohol intoxication and chest pain. Plan: -- EKG -- Cardiac Iso, CMP, Mg -- CBC -- Chest X-ray -- Reassess and disposition Prior Visits: Notes and results from previous visits were reviewed. Progress Notes: 10/12/18 03:59 EKG reviewed by me, shows: Normal sinus rhythm @98bpm Normal axis, Normal intervals - RAD Interpretation Radiology Orders: 10/12/18 03:51 CHEST PORTABLE [RAD] Stat - Scribe Statement The provider has reviewed the documentation as recorded by the Scribe Aaron Lynne All medical record entries made by the Donna were at my direction and personally dictated by me. I have reviewed the chart and agree that the record accurately reflects my personal performance of the history, physical exam, medical decision making, and the department course for this patient. I have also personally directed, reviewed, and agree with the discharge instructions and disposition. Disposition/Present on Arrival - Present on Arrival Any Indicators Present on Arrival: No History of DVT/PE: No History of Uncontrolled Diabetes: No Urinary Catheter: No History of Decub. Ulcer: No History Surgical Site Infection Following: None - Disposition Have Diagnosis and Disposition been Completed?: Yes Diagnosis: Alcohol abuse, Non-cardiac chest pain Disposition: HOME/ ROUTINE Disposition Time: 04:45 Condition: GOOD Discharge Instructions (ExitCare): Alcohol Use - When Is Drinking a Problem?, Chest Pain (ED) Additional Instructions: RACHNA RIVAS, thank you for letting us take care of you today. The emergency medical care you received today was directed at your acute symptoms. If you were prescribed any medication, please fill it and take as directed. It may take several days for your symptoms to resolve. Return to the Emergency Department if your symptoms worsen, do not improve, or if you have any other problems. Please contact your doctor or call one of the physicians/clinics you have been referred to that are listed on the Patient Visit Information form that is included in your discharge packet. Bring any paperwork you were given at discharge with you along with any medications you are taking to your follow up visit. Our treatment cannot replace ongoing medical care by a primary care provider outside of the emergency department. Thank you for allowing the [facility] team to be part of your care today. Follow up with our clinic in 3-5 days for re-evaluation and further management. Referrals: [facility] [employer] [facility] [Outside] - Follow up with primary Nathaly Kendall MD [Medical Doctor] - Follow up with primary Forms: [employer] (Dominican)
[2018-10-12 04:07] LABS: BASO # 0.01 K/mm3 (0.0-2.0); BASO % 0.2 % (0.0-3.0); EOS % 0.6 % (1.5-5.0); HEMOGLOBIN 15.5 g/dL (14.0-18.0); LYMPH # 2.8 (1.2-3.4); LYMPH % 44.2 % (22.0-35.0); MEAN CORPUSCULAR HEMOGLOBIN 32.1 pg (25.0-35.0); MEAN CORPUSCULAR HGB CONC 34.3 g/dl (31.0-37.0); MEAN PLATELET VOLUME 9.3 fl (7.0-11.0); MONO # 0.4 (0.1-0.6); MONO % 6.3 % (1.0-6.0); RBC 4.83 10^6/uL (3.5-6.1); RED CELL DISTRIBUTION WIDTH 12.6 % (11.5-14.5); WHITE BLOOD COUNT 6.2 10^3/uL (4.5-11.0)
[2018-10-12 04:08] LABS: MEAN CELL VOLUME 93.6 fl (80.0-105.0)
[2018-10-12 04:17] LABS: ALB/GLOB RATIO 1.1 (1.1-1.8); ALBUMIN 4.6 g/dL (3.0-4.8); ALT/SGPT 230 U/L (7-56); AST/SGOT 215 U/L (17-59); BLOOD UREA NITROGEN 5 mg/dL (7-21); GFR NON-AFRICAN AMERICAN > 60
[2018-10-12 04:28] LABS: TROPONIN I < 0.01 ng/mL
[2018-10-12 04:56] LABS: CK-MB 4.1 ng/mL (0.0-3.6)
[2018-10-12 05:40] VITALS: BP 151/89; PULSE 98; O2SAT 99
--- NOTE | 2018-10-12 11:07 | RAD ---
Date of service: 10/12/2018 HISTORY: chest pain COMPARISON: 09/10/2017. FINDINGS: LUNGS: The lungs are well inflated and clear. PLEURA: No pleural effusions or pneumothorax. CARDIOVASCULAR: The heart is normal in size. No aortic atherosclerotic calcifications present. OSSEOUS STRUCTURES: Within normal limits for the patient's age. VISUALIZED UPPER ABDOMEN: Normal. OTHER FINDINGS: None. IMPRESSION: No active pulmonary disease.
--- NOTE | 2018-10-12 17:00 | CARD ---
APPROVED REPORT Date of service: 10/12/2018 EKG Measurement Heart [id number] <Conclusion> Normal sinus rhythm Normal Electrocardiogram
== END 2018-10-12 05:41 | disposition home or self-care (01) ==
LOC: ED 03:11
DX: F10.129 Alcohol abuse with intoxication, unspecified (principal); R07.89 Other chest pain; I10 Essential (primary) hypertension; F17.210 Nicotine dependence, cigarettes, uncomplicated